=== PATIENT | male | born 1950 | race African-American/Black ===

== ENCOUNTER → 2017-10-30 | Outpatient (CLI) | payer MEDICARE, OTHER | END | disposition home or self-care (01) | LOC: ECHO 08:56 | DX: I25.10 Atherosclerotic heart disease of native coronary artery without angina pectoris (principal) | CPT/HCPCS: 93306 ==

== ENCOUNTER → 2017-12-08 | Outpatient (CLI) | payer MEDICARE, OTHER | END | disposition home or self-care (01) | LOC: ECHO 12:52 | DX: I95.0 Idiopathic hypotension (principal); I25.10 Atherosclerotic heart disease of native coronary artery without angina pectoris; Z82.49 Family history of ischemic heart disease and other diseases of the circulatory system | CPT/HCPCS: 93017; 93350 ==

== ENCOUNTER → 2018-05-18 | Outpatient (CLI) | payer MEDICARE, OTHER ==
[2014-08-17 12:15] VITALS: BP 126/67
[~2018-05-18] MED LIST: ASPI-482 PO; ATOR40TA59 PO; COLE1TAB2 PO; FOLI1TAB16 PO; GLIP10TA13 PO; LISI-334 PO; METF10007 PO; METO-269 PO; NIAC500T10 PO
--- NOTE | 2018-05-18 15:57 | RAD ---
EXAM: Renal sonogram. HISTORY: Renal insufficiency. TECHNIQUE: Sonographic imaging the kidneys and bladder was performed. COMPARISON: None. FINDINGS: The right kidney measures 9.7 cm ueyj-fy-vuhw. The left kidney is partially obscured due to bowel gas. This appears to be grossly normal in size. No solid or cystic renal lesion is seen. There is no hydronephrosis. The ureteral jets are not seen during the exam. The bladder volume is 44 cc. There is incidental cholelithiasis. IMPRESSION: 1. Sonographically unremarkable kidneys, with limited evaluation of the left kidney due to bowel gas. 2. Cholelithiasis. Electronically signed by: Shena Collado MD (05/18/2018 3:53 PM) [place] [id number]
== END | disposition home or self-care (01) ==
LOC: US 15:25
PROVIDERS: ATTEND Internal Medicine Nephrology
DX: N18.3 Chronic kidney disease, stage 3 (moderate) (principal); K80.20 Calculus of gallbladder without cholecystitis without obstruction; I25.10 Atherosclerotic heart disease of native coronary artery without angina pectoris; Z79.899 Other long term (current) drug therapy
CPT/HCPCS: 76770

== ENCOUNTER → 2020-05-04 | Outpatient (CLI) | payer MEDICARE, OTHER ==
[2014-08-17 12:15] VITALS: BP 126/67
[~2020-05-04] MED LIST changes: +NIAC-23 PO; -NIAC500T10 PO; +REGADENOSON 0.4 MG/5 ML DISP.SYRIN. IV ONE
--- NOTE | 2020-05-04 15:40 | RAD ---
MR#: [id number] Date of Study: 05/04/2020 Ordering Physician: ONEIL FLOOD, Referring Physician: VALORIE HAQUE Tech: RT Vanita DiazR) (N) APPROVED REPORT Test Type: Pharmacological Stress Nurse/Tech: Blane Velásquez RN Test Indications: CAD Cardiac History: Cardiac stents x2, HTN, See EMR. Medications: See EMR. Medical History: X-Smoker, DM, See EMR. Resting ECG: SR Resting Heart Rate: 69 bpm Resting Blood Pressure: 141/69mmHg Pretest Chest Pain: No chest pain Nurse/Tech Notes Lungs CTA, Heart tones regular. Consent: The procedure was explained to the patient in lay terms. Informed consent was witnessed. Sean eout was entered into [email or web address]. History and Stress Test performed by RT Maki (R) (N) Pharm. Details Pharmacologic stress testing was performed using 0.4mg per 5ml of regadenoson given intravenously ove r 7-10 seconds. Stress Symptoms No chest pain or symptoms. POST EXERCISE Reason for Termination: Infusion complete Max HR: 89 bpm Max Blood Pressure: 154/57mmHg Blood Pressure response to exercise: Normal blood pressure response during stress. Heart Rate response to exercise: WNL Chest Pain: No. Arrhythmia: No. ST Change: No. INTERPRETATION Stress EKG Conclusion: No evidence of stress induced EKG changes to suggest ischemia. Imaging Protocol IMAGE PROTOCOL: Rest Tc-99m/stress Tc-99m 1 day Rest: Stress: Viability: Radiopharm.Tc99m PkgxmmqjtMx75z Sestamibi Xvaz35uYe 31.2mCi Duration 15min. 15min. Img Date 05/04/2020 05/04/2020 Inj-Img Niuf27voc. 60min. Rest Admin Site:IV - Right AntecubitalAdministrator: RT Maki (R)(N) Stress Admin Site: IV - Right AntecubitalAdministrator: RT Vanita GambinoR)(N) STRESS DATA End Diast. Vol.110.0mlAv. Heart Rate71.0bpm End Syst. Vol.39.0mlCO Index BSA0.0L/min Myocardial Kruq237.0gEject. Iivoxkuf00.0% Stress Rates Pk. Fill Rate3.21EDV/secLVtime Pk. Fill 104.96msec Pk. Empty Rate3.51ESV/secLVtime Pk. Mklef670.52msec 1/3 Pk. Fill2.28EDV/sec Stress Scores Regional WT1.00Summed WT7.00 Regional WM0.00Summed WM0.00 LV Perfusion Fixed basal inferolateral perfusion defect likely related to artifact rather than prior infarct. Wall Motion Normal wall motion. EF > 65% LV Perf. Quant 17 Seg. SSS7.00 17 Seg. SRS6.00 17 Seg. SDS1.00 Stress Defect Extent (% LAD)8.80Rest Defect Extent (% LAD)6.30Rev. Defect Extent (% LAD)0.00 Stress Defect Extent (% LCX) 48.80Rest Defect Extent (% LCX)30.00Rev. Defect Extent (% LCX)1.30 Stress Defect Extent (% RCA)0.00Rest Defect Extent (% RCA)0.00Rev. Defect Extent (% RCA)0.00 Stress Defect Extent (% GINGER)16.10Rest Defect Extent (% GINGER)10.70Rev. Defect Extent (% GINGER)0.20 Other Information Quality:Average Risk Assessment: Low Risk Conclusion 1. No evidence of stress induced EKG changes. 2. Fixed basal inferolateral perfusion defect likely related to artifact rather than prior infarct. 3. Normal EF at > 65% 4. Low risk study. Signed by : Oneil Flood, Electronically Approved : 05/04/2020 15:39:22
== END ==
LOC: NM 08:56
PROVIDERS: ATTEND Internal Medicine Cardiovascular Disease
DX: I25.10 Atherosclerotic heart disease of native coronary artery without angina pectoris (principal); Z87.891 Personal history of nicotine dependence
CPT/HCPCS: 78452; 93017; A9500; J2785

== ENCOUNTER → 2021-04-30 | Outpatient (CLI) | payer MEDICARE, OTHER ==
[2014-08-17 12:15] VITALS: BP 126/67
[~2021-04-30] MED LIST changes: -LISI-334 PO; +LISI20TA18 PO; -NIAC-23 PO; +NIAC-25 PO; -REGADENOSON 0.4 MG/5 ML DISP.SYRIN. IV ONE
--- NOTE | 2021-04-30 13:29 | RAD ---
MR#: [id number] Date of Study: 04/30/2021 Ordering Physician: ONEIL MCNAIR, Referring Physician: VALORIE HAQUE Tech: RT Maki (R) (N) APPROVED REPORT Test Type: Exercise Stress Nurse/Tech: GRISEL Chew ARRT (R) (N) Test Indications: cad Cardiac History: cad, stent x 2, htn, dm Medications: see ehr Medical History: see ehr Resting ECG: SR see printout Resting Heart Rate: 80 bpm Resting Blood Pressure: 166/64mmHg Pretest Chest Pain: No chest pain Nurse/Tech Notes lungs cta, heart tones regular Consent: The procedure was explained to the patient in lay terms. Informed consent was witnessed. Sean eout was entered into [employer] History and Stress Test performed by GRISEL Chew ARRT (R) (N) Stress Symptoms No chest pain or symptoms. POST EXERCISE Reason for Termination: Reached target heart rate Target HR: Yes Max HR: 130 bpm 88% of Maximum Predicted HR: 147 bpm Exercise duration: 7:29 min:sec, 3 Stage Exercise capacity: 10METs Max Blood Pressure: 143/54mmHg Blood Pressure response to exercise: Normal blood pressure response during stress. Heart Rate response to exercise: normal Chest Pain: No. Arrhythmia: No. ST Change: Yes. non diagnostic INTERPRETATION Stress EKG Conclusion: Baseline EKG showed sinus rhythm, left ventricular hypertrophy with repolariza tion abnormalities. Nondiagnostic changes at peak stress. No arrhythmias. Imaging Protocol IMAGE PROTOCOL: Rest Tc-99m/stress Tc-99m 1 day Rest: Stress: Viability: Radiopharm.Tc99m EsnujjegzZc66b Sestamibi Lyvj08qRb 30mCi Duration 15min. 10min. Img Date 04/30/2021 04/30/2021 Inj-Img Xreq36sxk. 60min. Rest Admin Site:IV - Right WristAdministrator:GRISEL Chew ARRT (R)(N) Stress Admin Site: IV - Right WristAdministrator: Bere Paniagua, NMTCB, ARRT (R)(N) STRESS DATA End Diast. Vol.103.0mlAv. Heart Rate84.0bpm End Syst. Vol.28.0mlCO Index BSA0.0L/min Myocardial Aywf310.0gEject. Fjbzztbh54.0% Stress Rates Pk. Fill Rate4.04EDV/secLVtime Pk. Fill 204.97msec Pk. Empty Rate4.25ESV/secLVtime Pk. Rtqzg140.81msec /3 Pk. Fill1.17EDV/sec Stress Scores Regional WT0.00Summed WT4.00 Regional WM0.00Summed WM0.00 Study quality was good. Left Ventricular size was Normal at Rest and Stress. Lung uptake was . Left Ventricular ejection fraction is 73%. The rest and stress images show normal perfusion, normal contraction and thickening. LV Perf. Quant 17 Seg. SSS4.00 17 Seg. SRS4.00 17 Seg. SDS1.00 Stress Defect Extent (% LAD)0.00Rest Defect Extent (% LAD)0.00Rev. Defect Extent (% LAD)0.00 Stress Defect Extent (% LCX) 35.00Rest Defect Extent (% LCX)30.00Rev. Defect Extent (% LCX)0.00 Stress Defect Extent (% RCA)5.60Rest Defect Extent (% RCA)7.80Rev. Defect Extent (% RCA)0.00 Stress Defect Extent (% GINGER)12.00Rest Defect Extent (% GINGER)10.40Rev. Defect Extent (% GINGER)0.00 Conclusion 1. Treadmill exercise cardioisotope stress test did not show any evidence of ischemia or infarct. 2. Normal left ventricular systolic function with ejection fraction calculated at 73%. 3. Low risk for cardiac events. Signed by : Mt Deng, Electronically Approved : 04/30/2021 13:28:57
== END ==
LOC: NM 08:36
PROVIDERS: ATTEND Internal Medicine Cardiovascular Disease
DX: I25.10 Atherosclerotic heart disease of native coronary artery without angina pectoris (principal)
CPT/HCPCS: 78452; 93017; A9500